=== PATIENT | male | born 1970 | race African-American/Black ===

== ENCOUNTER 2018-12-21 22:28 | Inpatient (IN) ==
[2018-12-21] MEDS ORDERED: ONDANSETRON 4 MG/2 ML VIAL IV STA (22:59)
[2018-12-21] MEDS ORDERED: THIAMINE INJ 100 MG, FOLIC ACID INJ 1 MG, MAGNESIUM SULF INJ 2 GM, MULTIVITAMIN INJ 10 ... IV ONE (22:59)
[2018-12-21] MEDS ORDERED: PANTOPRAZOLE 40 MG VIAL IV STA (22:59)
[2018-12-21 23:26] LABS: Basophils % 0.7 % (0.0-0.8); Eosinophils % 1.3 % (0.00-10.9); Hematocrit 42.8 VOL% (42.0-52.0); Immature Granulocytes % 0.3 %; Immature Granulocytes Absolute 0.01 #; Lymphocytes # 1.1 10*3/uL (1.4-4.0); Lymphocytes % 37.7 % (21.2-54.2); Mean Corpuscular Volume 90.1 FL (87-102); Mean Platelet Volume 11.5 FL (9.6-12.0); Monocytes % 16.5 % (1.7-12.7); Neutrophils % 43.5 % (38.7-73.9); Platelet Count 98 T/CUMM (130-400); Red Blood Count 4.75 MC/CUMM (3.8-5.5); Red Cell Distribution Width 12.4 % (9.3-17.3)
[2018-12-21 23:31] LABS: INR 0.9; PT Patient Result 10.2 SECS
[2018-12-21 23:48] LABS: Albumin 3.4 G/DL (3.4-5.0); Calcium 8.2 MG/DL (8.5-10.1); Osmolality,Calculated 273.5 MOS/KG (273-304); Total Protein 7.4 G/DL (6.4-8.3)
[2018-12-21 23:55] LABS: Barbiturates Screen,Urine Negative (Negative); Benzodiazepines Screen,Urine Negative (Negative); Cannabinoid Screen,Urine Negative (Negative); Opiate Screen,Urine Negative (Negative); Phencyclidine Screen,Urine Negative (Negative)
[2018-12-21 23:57] LABS: Eosinophils 1 % (0-10); Lymphocytes 48 % (20-55); Segmented Neutrophils 35 % (50-85)
[2018-12-21 23:58] LABS: Atypical Lymphocytes Few; Platelet Estimate Decreased; Reactive Lymphocytes Few; Total Cells Counted 100
[2018-12-22] MEDS ORDERED: ONDANSETRON 4 MG/2 ML VIAL IV PRN (02:10)
[2018-12-22] MEDS ORDERED: LORazepam 2 MG/1 ML VIAL IV PRN ×2 (02:17→02:18)
[2018-12-22] MEDS ORDERED: traZODone 50 MG TABLET PO PRN (02:18)
[2018-12-22] MEDS ORDERED: SENNA 8.6 MG TABLET PO PRN (02:18)
[2018-12-22] MEDS: SODIUM CHLORIDE 0.9% 1,000 ML IV SCH ×2 (03:21→16:55)
[2018-12-22] MEDS ORDERED: ACETAMINOPHEN 500 MG TABLET PO ONE ×2 (03:58→04:03)
[2018-12-22 05:02] LABS: Basophils % 0.3 % (0.0-0.8); Eosinophils % 1.4 % (0.00-10.9); Hematocrit 40.7 VOL% (42.0-52.0); Hemoglobin 14.4 GM/DL (14.0-18.0); Immature Granulocytes % 0.3 %; Immature Granulocytes Absolute 0.01 #; Lymphocytes # 1.2 10*3/uL (1.4-4.0); Lymphocytes % 40.6 % (21.2-54.2); Mean Corpuscular HGB Conc 35.4 GM/DL (32-36); Mean Corpuscular Volume 90.2 FL (87-102); Mean Platelet Volume 13.5 FL (9.6-12.0); Monocytes % 19.9 % (1.7-12.7); Neutrophils % 37.5 % (38.7-73.9); Red Blood Count 4.51 MC/CUMM (3.8-5.5); Red Cell Distribution Width 12.1 % (9.3-17.3); White Blood Count 2.9 T/CUMM (4-12)
[2018-12-22 05:11] LABS: Platelet Count 80 T/CUMM (130-400)
[2018-12-22 05:26] LABS: Osmolality,Calculated 275.4 MOS/KG (273-304)
[2018-12-22 05:30] LABS: Atypical Lymphocytes Few; Eosinophils 2 % (0-10); Hypochromasia 1+; Lymphocytes 46 % (20-55); Platelet Estimate Decreased; Segmented Neutrophils 41 % (50-85); Total Cells Counted 100
[2018-12-22] MEDS: MULTIVITAMIN (CENTRUM) TABLET PO SCH (08:32)
[2018-12-22] MEDS: FOLIC ACID 1 MG TABLET PO SCH (08:32)
[2018-12-22] MEDS: THIAMINE 100 MG TABLET PO SCH (08:32)
[2018-12-22 11:18] LABS: Hemoglobin 14.2 GM/DL (14.0-18.0)
[2018-12-22] MEDS ORDERED: BISACODYL 5 MG TABLET PO ONE (12:30)
[2018-12-22 17:25] LABS: Hematocrit 40.2 VOL% (42.0-52.0); Hemoglobin 13.9 GM/DL (14.0-18.0)
[2018-12-22] MEDS: PANTOPRAZOLE 40 MG VIAL IV SCH (17:29)
[2018-12-22] MEDS ORDERED: POLYETHYLENE GLYCOL POWDER 255 GM BOTTLE PO ONE (18:00)
[2018-12-22] MEDS ORDERED: MAGNESIUM CITRATE 300 ML BOTTLE PO ONE (21:00)
[2018-12-22 23:21] LABS: Hematocrit 39.9 VOL% (42.0-52.0)
[2018-12-23 04:13] LABS: Basophils % 0.6 % (0.0-0.8); Eosinophils % 1.2 % (0.00-10.9); Immature Granulocytes % 0.3 %; Immature Granulocytes Absolute 0.01 #; Lymphocytes # 0.9 10*3/uL (1.4-4.0); Lymphocytes % 28.5 % (21.2-54.2); Mean Corpuscular Volume 90.7 FL (87-102); Mean Platelet Volume 13.3 FL (9.6-12.0); Monocytes % 13.5 % (1.7-12.7); Neutrophils % 55.9 % (38.7-73.9); Red Blood Count 4.41 MC/CUMM (3.8-5.5); Red Cell Distribution Width 12.4 % (9.3-17.3); White Blood Count 3.3 T/CUMM (4-12)
[2018-12-23 04:17] LABS: Platelet Count 59 T/CUMM (130-400)
[2018-12-23 04:28] LABS: INR 0.9; PT Patient Result 10.3 SECS
[2018-12-23 04:38] LABS: Hypochromasia 1+; Ovalocytes Slight; Platelet Estimate Decreased
[2018-12-23] MEDS: SODIUM CHLORIDE 0.9% 1,000 ML IV SCH (05:49)
[2018-12-23] MEDS ORDERED: LACTATED RINGERS 500 ML IV ONE (07:00)
[2018-12-23] MEDS: PANTOPRAZOLE 40 MG VIAL IV SCH (08:12)
[2018-12-23] MEDS ORDERED: LIDOCAINE 2% 5 ML VIAL ONE (09:00)
[2018-12-23] MEDS ORDERED: PROPOFOL 200 MG/20 ML VIAL IV ONE (09:00)
[2018-12-23] MEDS: MULTIVITAMIN (CENTRUM) TABLET PO SCH (13:48)
[2018-12-23] MEDS: FOLIC ACID 1 MG TABLET PO SCH (13:48)
[2018-12-23] MEDS: THIAMINE 100 MG TABLET PO SCH (13:48)
[2018-12-23] MEDS: chlordiazePOXIDE 10 MG CAPSULE PO SCH ×2 (15:53→21:23)
[2018-12-24] MEDS: FOLIC ACID 1 MG TABLET PO SCH (08:35)
[2018-12-24] MEDS: MULTIVITAMIN (CENTRUM) TABLET PO SCH (08:35)
[2018-12-24] MEDS: PANTOPRAZOLE 40 MG VIAL IV SCH (08:35)
[2018-12-24] MEDS: chlordiazePOXIDE 10 MG CAPSULE PO SCH ×3 (08:35→20:40)
[2018-12-24] MEDS: THIAMINE 100 MG TABLET PO SCH (08:36)
[2018-12-24] MEDS: SODIUM CHLORIDE 0.9% 1,000 ML IV SCH ×2 (16:47)
[2018-12-25] MEDS: SODIUM CHLORIDE 0.9% 1,000 ML IV SCH ×2 (02:16→14:08)
[2018-12-25] MEDS: PANTOPRAZOLE 40 MG VIAL IV SCH (08:41)
[2018-12-25] MEDS: MULTIVITAMIN (CENTRUM) TABLET PO SCH (09:08)
[2018-12-25] MEDS: FOLIC ACID 1 MG TABLET PO SCH (09:08)
[2018-12-25] MEDS: chlordiazePOXIDE 10 MG CAPSULE PO SCH ×3 (09:08→21:36)
[2018-12-25] MEDS: THIAMINE 100 MG TABLET PO SCH (09:09)
[2018-12-25] MEDS: amLODIPine 5 MG TABLET PO SCH (16:16)
[2018-12-26] MEDS: SODIUM CHLORIDE 0.9% 1,000 ML IV SCH ×2 (02:59→18:10)
[2018-12-26] MEDS: chlordiazePOXIDE 10 MG CAPSULE PO SCH ×2 (08:54→17:19)
[2018-12-26] MEDS: THIAMINE 100 MG TABLET PO SCH (08:54)
[2018-12-26] MEDS: amLODIPine 5 MG TABLET PO SCH (08:54)
[2018-12-26] MEDS: PANTOPRAZOLE 40 MG VIAL IV SCH (08:54)
[2018-12-26] MEDS: FOLIC ACID 1 MG TABLET PO SCH (08:54)
[2018-12-26] MEDS: MULTIVITAMIN (CENTRUM) TABLET PO SCH (08:54)
[2018-12-26 09:20] LABS: Hematocrit 37.5 VOL% (42.0-52.0); Hemoglobin 13.3 GM/DL (14.0-18.0)
[2018-12-26 16:30] LABS: Basophils % 0.5 % (0.0-0.8); Eosinophils # 0.1 10*3/uL (0.0-0.87); Eosinophils % 1.6 % (0.00-10.9); Hematocrit 38.5 VOL% (42.0-52.0); Hemoglobin 13.4 GM/DL (14.0-18.0); Immature Granulocytes % 0.2 %; Immature Granulocytes Absolute 0.01 #; Lymphocytes # 0.6 10*3/uL (1.4-4.0); Lymphocytes % 13.9 % (21.2-54.2); Mean Corpuscular HGB Conc 34.8 GM/DL (32-36); Mean Corpuscular Volume 91.4 FL (87-102); Mean Platelet Volume 11.8 FL (9.6-12.0); Monocytes % 10.9 % (1.7-12.7); Neutrophils % 72.9 % (38.7-73.9); Platelet Count 87 T/CUMM (130-400); Red Blood Count 4.21 MC/CUMM (3.8-5.5); Red Cell Distribution Width 12.8 % (9.3-17.3); White Blood Count 4.3 T/CUMM (4-12)
[2018-12-26] MEDS: ACETAMINOPHEN 325 MG TABLET PO PRN (16:45)
[2018-12-26] MEDS: ceFAZolin 1,000 MG in SYRINGE 1 EACH IV SCH (17:05)
[2018-12-26] MEDS ORDERED: SODIUM CHLORIDE 0.9% 1,000 ML IV ONE (17:15)
[2018-12-26 17:43] LABS: Apearance,Urine CLEAR (Clear); Bilirubin,Urine Negative (Negative); Blood, Urine Negative (Negative); Glucose,Urine (UA) Negative (Negative); Ketones,Urine Negative (Negative); Nitrite,Urine Negative (Negative); Protein,Urine Negative; RBC,Urine <1 /HPF (0-4); Urine Color Yellow (Yellow); Urine Specific Gravity 1.009 (1.001-1.035); WBC,Urine <1 /HPF (0-6)
[2018-12-26 18:04] LABS: Basophils % 0.4 % (0.0-0.8); Eosinophils % 0.7 % (0.00-10.9); Hematocrit 38.9 VOL% (42.0-52.0); Hemoglobin 13.5 GM/DL (14.0-18.0); Immature Granulocytes % 0.5 %; Immature Granulocytes Absolute 0.03 #; Lymphocytes # 0.5 10*3/uL (1.4-4.0); Lymphocytes % 8.4 % (21.2-54.2); Mean Corpuscular HGB Conc 34.7 GM/DL (32-36); Mean Corpuscular Volume 90.5 FL (87-102); Mean Platelet Volume 11.3 FL (9.6-12.0); Monocytes % 8.5 % (1.7-12.7); Neutrophils % 81.5 % (38.7-73.9); Platelet Count 96 T/CUMM (130-400); Red Cell Distribution Width 12.4 % (9.3-17.3); White Blood Count 5.6 T/CUMM (4-12)
[2018-12-26 18:29] LABS: Calcium 8.5 MG/DL (8.5-10.1); Osmolality,Calculated 266.2 MOS/KG (273-304)
[2018-12-26] MEDS ORDERED: MAGNESIUM SULF RIDER 4 GM in PREMIX 1 EACH IV PRN (19:36)
[2018-12-26] MEDS ORDERED: MAGNESIUM SULF RIDER 2 GM in PREMIX 1 EACH IV PRN (19:36)
[2018-12-26] MEDS: POTASSIUM CHLORIDE 20 MEQ TABLET PO PRN ×2 (21:09→23:13)
[2018-12-27] MEDS: ceFAZolin 1,000 MG in SYRINGE 1 EACH IV SCH ×3 (01:05→17:29)
[2018-12-27] MEDS: POTASSIUM CHLORIDE 20 MEQ TABLET PO PRN ×2 (01:06→03:03)
[2018-12-27] MEDS: SODIUM CHLORIDE 0.9% 1,000 ML IV SCH ×5 (03:08→21:13)
[2018-12-27 05:32] LABS: Basophils % 0.5 % (0.0-0.8); Eosinophils # 0.1 10*3/uL (0.0-0.87); Eosinophils % 0.8 % (0.00-10.9); Hematocrit 38.8 VOL% (42.0-52.0); Hemoglobin 13.5 GM/DL (14.0-18.0); Immature Granulocytes % 0.6 %; Immature Granulocytes Absolute 0.04 #; Lymphocytes # 0.8 10*3/uL (1.4-4.0); Lymphocytes % 11.6 % (21.2-54.2); Mean Corpuscular HGB Conc 34.8 GM/DL (32-36); Mean Corpuscular Volume 91.5 FL (87-102); Mean Platelet Volume 12.4 FL (9.6-12.0); Monocytes % 19.9 % (1.7-12.7); Neutrophils % 66.6 % (38.7-73.9); Platelet Count 54 T/CUMM (130-400); Red Blood Count 4.24 MC/CUMM (3.8-5.5); Red Cell Distribution Width 12.6 % (9.3-17.3); White Blood Count 6.5 T/CUMM (4-12)
[2018-12-27 05:55] LABS: Band Neutrophils 1 % (0-10); Lymphocytes 8 % (20-55); Segmented Neutrophils 78 % (50-85); Total Cells Counted 100
[2018-12-27 05:56] LABS: Hypochromasia 1+; Microcytosis Slight; Target Cells Slight
[2018-12-27 05:57] LABS: Platelet Estimate Decreased
[2018-12-27 06:03] LABS: Calcium 8.5 MG/DL (8.5-10.1); Osmolality,Calculated 272.7 MOS/KG (273-304)
[2018-12-27] MEDS: PANTOPRAZOLE 40 MG VIAL IV SCH (08:12)
[2018-12-27] MEDS: FLUTICASONE 50 MCG NASAL SPRAY 16 GM BOTTLE BOTH NARES SCH ×2 (10:04→21:03)
[2018-12-27] MEDS: amLODIPine 5 MG TABLET PO SCH (10:05)
[2018-12-27] MEDS: MULTIVITAMIN (CENTRUM) TABLET PO SCH (10:05)
[2018-12-27] MEDS: FOLIC ACID 1 MG TABLET PO SCH (10:05)
[2018-12-27] MEDS: THIAMINE 100 MG TABLET PO SCH (10:10)
[2018-12-27] MEDS: ACETAMINOPHEN 325 MG TABLET PO PRN (17:35)
[2018-12-28] MEDS: ceFAZolin 1,000 MG in SYRINGE 1 EACH IV SCH ×2 (01:18→08:50)
[2018-12-28] MEDS: SODIUM CHLORIDE 0.9% 1,000 ML IV SCH (05:25)
[2018-12-28 07:33] VITALS: BP 130/82
[2018-12-28] MEDS: FOLIC ACID 1 MG TABLET PO SCH (08:41)
[2018-12-28] MEDS: MULTIVITAMIN (CENTRUM) TABLET PO SCH (08:41)
[2018-12-28] MEDS: THIAMINE 100 MG TABLET PO SCH (08:41)
[2018-12-28] MEDS: amLODIPine 5 MG TABLET PO SCH (08:41)
[2018-12-28] MEDS: FLUTICASONE 50 MCG NASAL SPRAY 16 GM BOTTLE BOTH NARES SCH (08:44)
[2018-12-28] MEDS: PANTOPRAZOLE 40 MG VIAL IV SCH (08:45)
== END 2018-12-28 09:45 | disposition home or self-care (01) | DRG 378 ==
LOC: EDBD → EDUNIT# → N.2E 22:28 → N.ED 22:28 → N.2E 12-22 02:49
PROVIDERS: ADMIT Internal Medicine; ATTEND Internal Medicine

== ENCOUNTER 2020-12-09 15:52 | Inpatient (IN) ==
[2020-12-09] MEDS ORDERED: THIAMINE 200 MG/2 ML VIAL IV STA (16:11)
[2020-12-09] MEDS ORDERED: SODIUM CHLORIDE 0.9% 1,000 ML IV STA (16:11)
[2020-12-09 16:32] LABS: Basophils % 0.9 % (0.0-0.8); Eosinophils % 0.3 % (0.00-10.9); Hematocrit 26.3 VOL% (42.0-52.0); Hemoglobin 9.2 GM/DL (14.0-18.0); Immature Granulocytes % 3.1 %; Lymphocytes # 1.3 10*3/uL (1.4-4.0); Lymphocytes % 39.9 % (21.2-54.2); Mean Corpuscular Volume 100.8 FL (87-102); Monocytes % 11.8 % (1.7-12.7); NRBC # 0.07 10*3/uL; Red Blood Count 2.61 MC/CUMM (3.8-5.5); Red Cell Distribution Width 17.6 % (9.3-17.3); White Blood Count 3.2 T/CUMM (4-12)
[2020-12-09 16:36] LABS: Platelet Count 19 T/CUMM (130-400)
[2020-12-09 16:43] LABS: INR 1.1; PT Patient Result 11.4 SECS (9.8-11.9)
[2020-12-09] MEDS ORDERED: PANTOPRAZOLE 40 MG VIAL IV STA (16:43)
[2020-12-09 16:58] LABS: Albumin 2.7 G/DL (3.4-5.0); Calcium 8.4 MG/DL (8.5-10.1); Potassium 2.9 MMOL/L (3.5-5.1); Total Protein 6.7 G/DL (5.0-7.5)
[2020-12-09 17:08] LABS: Barbiturates Screen,Urine Negative (Negative); Benzodiazepines Screen,Urine Negative (Negative); Cannabinoid Screen,Urine Negative (Negative); Opiate Screen,Urine Negative (Negative); Phencyclidine Screen,Urine Negative (Negative)
[2020-12-09] MEDS ORDERED: POTASSIUM CHLORIDE 20 MEQ TABLET PO STA (17:10)
[2020-12-09 17:19] LABS: Platelet Estimate Decreased
[2020-12-09 17:20] LABS: Polychromasia Few
[2020-12-09 17:23] LABS: Anisocytosis Slight
[2020-12-09] MEDS ORDERED: ONDANSETRON 4 MG/2 ML VIAL IV PRN (19:16)
[2020-12-09] MEDS ORDERED: GLUCAGON 1 MG VIAL IM PRN (19:16)
[2020-12-09] MEDS ORDERED: hydrALAZINE 20 MG/1 ML VIAL IV PRN (19:16)
[2020-12-09] MEDS ORDERED: MORPHINE 4 MG/1 ML VIAL IV PRN (19:16)
[2020-12-09] MEDS ORDERED: DEXTROSE 50% 25 GM/50 ML VIAL IV PRN (19:16)
[2020-12-09] MEDS ORDERED: SODIUM CHLORIDE 0.9% 1,000 ML IV PRN (19:28)
[2020-12-09 20:08] LABS: % Iron Saturation 55.4 % (18-50); Ferritin 6282.5 ng/ml (26-388)
[2020-12-09 20:25] LABS: Thyroid Stimulating Hormone 0.825 uIU/ml (0.358-3.74)
[2020-12-09] MEDS: PANTOPRAZOLE 40 MG VIAL IV SCH (21:08)
[2020-12-09] MEDS: DEXTROSE 5% NACL 0.9% 1,000 ML IV SCH (21:11)
[2020-12-09] MEDS ORDERED: MAGNESIUM SULF RIDER 2 GM in PREMIX 1 EACH IV PRN (22:25)
[2020-12-09] MEDS ORDERED: MAGNESIUM SULF RIDER 4 GM in PREMIX 1 EACH IV PRN (22:25)
[2020-12-10 05:42] LABS: Basophils % 1.3 % (0.0-0.8); Hematocrit 22.4 VOL% (42.0-52.0); Hemoglobin 8.2 GM/DL (14.0-18.0); Immature Granulocytes % 4.8 %; Immature Granulocytes Absolute 0.11 #; Lymphocytes # 0.8 10*3/uL (1.4-4.0); Lymphocytes % 36.2 % (21.2-54.2); Mean Corpuscular HGB Conc 36.6 GM/DL (32-36); Mean Corpuscular Volume 99.1 FL (87-102); Monocytes % 8.7 % (1.7-12.7); NRBC # 0.05 10*3/uL; Red Blood Count 2.26 MC/CUMM (3.8-5.5); Red Cell Distribution Width 17.3 % (9.3-17.3); White Blood Count 2.3 T/CUMM (4-12)
[2020-12-10 05:50] LABS: Platelet Count 21 T/CUMM (130-400)
[2020-12-10 05:59] LABS: Hypochromasia 1+; Microcytosis 1+
[2020-12-10 06:02] LABS: Albumin 2.4 G/DL (3.4-5.0); Bilirubin,Total 4.9 MG/DL (0.2-1.0); Calcium 7.9 MG/DL (8.5-10.1); Osmolality,Calculated 281.8 MOS/KG (273-304); Potassium 3.4 MMOL/L (3.5-5.1); Total Protein 5.9 G/DL (5.0-7.5)
[2020-12-10 06:47] LABS: Bilirubin,Urine Negative (Negative); Blood, Urine Negative (Negative); Glucose,Urine (UA) Negative (Negative); Ketones,Urine Negative (Negative); Nitrite,Urine Negative (Negative); Protein,Urine Negative; RBC,Urine 3 /HPF (0-4); Squamous Epithelial Cell,Urine Occasional /HPF (0-10); Urine Appearance CLEAR (Clear); Urine Color Amber (Yellow); Urine Specific Gravity 1.021 (1.001-1.035); WBC,Urine 5 /HPF (0-6)
[2020-12-10] MEDS ORDERED: methylPREDNISolone SOD SUC 40 MG/1 ML VIAL IV ONE (07:57)
[2020-12-10] MEDS ORDERED: diphenhydrAMINE CAP 50 MG CAPSULE PO ONE (07:57)
[2020-12-10] MEDS: PANTOPRAZOLE 40 MG VIAL IV SCH ×2 (08:44→22:25)
[2020-12-10] MEDS: FOLIC ACID 1 MG TABLET PO SCH (08:45)
[2020-12-10] MEDS: MULTIVITAMIN (CENTRUM) TABLET PO SCH (08:45)
[2020-12-10] MEDS ORDERED: THIAMINE 200 MG/2 ML VIAL IM SCH (09:00)
[2020-12-10] MEDS: chlordiazePOXIDE 25 MG CAPSULE PO PRN ×2 (15:21→19:25)
[2020-12-10] MEDS: LORazepam 2 MG/1 ML VIAL IV PRN (19:25)
[2020-12-10] MEDS: chlordiazePOXIDE 25 MG CAPSULE PO SCH (22:24)
[2020-12-10] MEDS: DEXTROSE 5% NACL 0.9% 1,000 ML IV SCH (22:24)
[2020-12-11 06:33] LABS: Basophils % 0.7 % (0.0-0.8); Hematocrit 24.7 VOL% (42.0-52.0); Hemoglobin 8.9 GM/DL (14.0-18.0); Immature Granulocytes % 4.5 %; Immature Granulocytes Absolute 0.12 #; Lymphocytes # 0.8 10*3/uL (1.4-4.0); Lymphocytes % 30.7 % (21.2-54.2); Monocytes % 9.4 % (1.7-12.7); NRBC # 0.07 10*3/uL; Neutrophils % 54.7 % (38.7-73.9); Platelet Count 41 T/CUMM (130-400); Red Blood Count 2.47 MC/CUMM (3.8-5.5); Red Cell Distribution Width 17.1 % (9.3-17.3); White Blood Count 2.7 T/CUMM (4-12)
[2020-12-11 06:51] LABS: Albumin 2.7 G/DL (3.4-5.0); Bilirubin,Direct 3.25 MG/DL (0.0-0.20); Bilirubin,Indirect 1.7 MG/DL (0.0-1.0); Bilirubin,Total 4.9 MG/DL (0.2-1.0); Total Protein 6.5 G/DL (5.0-7.5)
[2020-12-11 06:53] LABS: Albumin 2.7 G/DL (3.4-5.0); Bilirubin,Total 5.6 MG/DL (0.2-1.0); Calcium 8.4 MG/DL (8.5-10.1); Osmolality,Calculated 272.7 MOS/KG (273-304); Potassium 3.3 MMOL/L (3.5-5.1); Total Protein 6.5 G/DL (5.0-7.5)
[2020-12-11 07:03] LABS: Hypochromasia 1+
[2020-12-11 07:04] LABS: Microcytosis 1+; Target Cells 1+; Tear Drop Cells Slight
[2020-12-11 07:05] LABS: Platelet Estimate Decreased
[2020-12-11] MEDS ORDERED: POTASSIUM CHLORIDE 20 MEQ TABLET PO ONE (08:47)
[2020-12-11] MEDS: chlordiazePOXIDE 25 MG CAPSULE PO SCH ×3 (09:27→21:43)
[2020-12-11] MEDS: FOLIC ACID 1 MG TABLET PO SCH (09:27)
[2020-12-11] MEDS: THIAMINE 100 MG TABLET PO SCH (09:27)
[2020-12-11] MEDS: MAGNESIUM OXIDE 400 MG TABLET PO SCH (09:28)
[2020-12-11] MEDS: MULTIVITAMIN (CENTRUM) TABLET PO SCH (09:29)
[2020-12-11] MEDS: PANTOPRAZOLE 40 MG VIAL IV SCH ×2 (09:32→21:40)
[2020-12-11] MEDS: DEXTROSE 5% NACL 0.9% 1,000 ML IV SCH (18:13)
[2020-12-12] MEDS: LORazepam 2 MG/1 ML VIAL IV PRN ×2 (03:35→15:20)
[2020-12-12 06:08] LABS: Basophils % 0.6 % (0.0-0.8); Eosinophils % 0.6 % (0.00-10.9); Hematocrit 26.8 VOL% (42.0-52.0); Hemoglobin 9.4 GM/DL (14.0-18.0); Immature Granulocytes % 4.2 %; Immature Granulocytes Absolute 0.14 #; Lymphocytes % 30.1 % (21.2-54.2); Mean Corpuscular HGB Conc 35.1 GM/DL (32-36); Mean Corpuscular Volume 104.3 FL (87-102); Mean Platelet Volume 13.9 FL (9.6-12.0); Monocytes % 8.4 % (1.7-12.7); NRBC # 0.09 10*3/uL; Neutrophils % 56.1 % (38.7-73.9); Platelet Count 53 T/CUMM (130-400); Red Blood Count 2.57 MC/CUMM (3.8-5.5); Red Cell Distribution Width 17.2 % (9.3-17.3); White Blood Count 3.3 T/CUMM (4-12)
[2020-12-12 06:35] LABS: Albumin 2.8 G/DL (3.4-5.0); Bilirubin,Total 4.8 MG/DL (0.2-1.0); Calcium 8.8 MG/DL (8.5-10.1); Osmolality,Calculated 269.8 MOS/KG (273-304); Potassium 3.4 MMOL/L (3.5-5.1); Total Protein 6.7 G/DL (5.0-7.5)
[2020-12-12 06:36] LABS: Albumin 2.9 G/DL (3.4-5.0); Bilirubin,Direct 3.56 MG/DL (0.0-0.20); Bilirubin,Indirect 1.7 MG/DL (0.0-1.0); Bilirubin,Total 5.3 MG/DL (0.2-1.0); Hypochromasia 1+; Microcytosis 1+; Platelet Estimate Decreased; Total Protein 6.7 G/DL (5.0-7.5)
[2020-12-12] MEDS ORDERED: POTASSIUM CHLORIDE 20 MEQ TABLET PO ONE (08:40)
[2020-12-12] MEDS: THIAMINE 100 MG TABLET PO SCH (10:10)
[2020-12-12] MEDS: FOLIC ACID 1 MG TABLET PO SCH (10:10)
[2020-12-12] MEDS: MAGNESIUM OXIDE 400 MG TABLET PO SCH (10:10)
[2020-12-12] MEDS: MULTIVITAMIN (CENTRUM) TABLET PO SCH (10:11)
[2020-12-12] MEDS: chlordiazePOXIDE 25 MG CAPSULE PO SCH ×3 (10:11→20:21)
[2020-12-12] MEDS: PANTOPRAZOLE 40 MG VIAL IV SCH ×2 (10:13→22:04)
[2020-12-12] MEDS ORDERED: HALOPERIDOL 5 MG/ML AMP IM PRN (18:22)
[2020-12-13 06:16] LABS: Basophils % 0.6 % (0.0-0.8); Eosinophils % 0.3 % (0.00-10.9); Hematocrit 24.7 VOL% (42.0-52.0); Hemoglobin 8.7 GM/DL (14.0-18.0); Lymphocytes # 0.8 10*3/uL (1.4-4.0); Lymphocytes % 23.3 % (21.2-54.2); Mean Corpuscular HGB Conc 35.2 GM/DL (32-36); Mean Corpuscular Volume 101.6 FL (87-102); Monocytes % 9.9 % (1.7-12.7); NRBC # 0.06 10*3/uL; Neutrophils % 62.9 % (38.7-73.9); Platelet Count 46 T/CUMM (130-400); Red Blood Count 2.43 MC/CUMM (3.8-5.5); Red Cell Distribution Width 17.1 % (9.3-17.3); White Blood Count 3.4 T/CUMM (4-12)
[2020-12-13 06:33] LABS: Albumin 2.7 G/DL (3.4-5.0); Bilirubin,Direct 3.39 MG/DL (0.0-0.20); Bilirubin,Indirect 0.9 MG/DL (0.0-1.0); Bilirubin,Total 4.3 MG/DL (0.2-1.0)
[2020-12-13 06:35] LABS: Albumin 2.7 G/DL (3.4-5.0); Bilirubin,Total 4.4 MG/DL (0.2-1.0); Calcium 9.3 MG/DL (8.5-10.1); Osmolality,Calculated 273.5 MOS/KG (273-304); Potassium 3.5 MMOL/L (3.5-5.1); Total Protein 6.4 G/DL (5.0-7.5)
[2020-12-13 06:40] LABS: Hypochromasia 1+; Microcytosis 1+; Platelet Estimate Decreased
[2020-12-13] MEDS ORDERED: LACTATED RINGERS 1,000 ML IV SCH (08:00)
[2020-12-13] MEDS: PANTOPRAZOLE 40 MG VIAL IV SCH (08:40)
[2020-12-13] MEDS: chlordiazePOXIDE 25 MG CAPSULE PO SCH ×2 (08:52→16:54)
[2020-12-13] MEDS: MULTIVITAMIN (CENTRUM) TABLET PO SCH (08:52)
[2020-12-13] MEDS: FOLIC ACID 1 MG TABLET PO SCH (08:52)
[2020-12-13] MEDS: MAGNESIUM OXIDE 400 MG TABLET PO SCH (08:53)
[2020-12-13] MEDS: THIAMINE 100 MG TABLET PO SCH (08:53)
[2020-12-13] MEDS ORDERED: LIDOCAINE 2% 5 ML VIAL ONE (11:37)
[2020-12-13] MEDS ORDERED: propofoL 200 MG/20 ML VIAL IV ONE (11:37)
[2020-12-13 15:42] VITALS: BP 138/100
[2020-12-13] MEDS: DEXTROSE 5% NACL 0.9% 1,000 ML IV SCH (16:54)
== END 2020-12-13 17:20 | disposition home or self-care (01) | DRG 896 ==
LOC: EDUNIT# → EDBD → N.ED 15:52 → N.EDINP 19:13 → N.4E 21:53
PROVIDERS: ADMIT Hospitalist; ATTEND Hospitalist

== ENCOUNTER 2021-09-25 10:40 | Inpatient (IN) ==
[2021-09-25] MEDS ORDERED: THIAMINE INJ 100 MG, FOLIC ACID INJ 1 MG, MAGNESIUM SULF INJ 2 GM, MULTIVITAMIN INJ 10 ... IV STA (11:08)
[2021-09-25 11:17] LABS: Basophils % 0.4 % (0.0-0.8); Hemoglobin 12.1 GM/DL (14.0-18.0); Immature Granulocytes % 4.9 %; Immature Granulocytes Absolute 0.13 #; Lymphocytes # 0.5 10*3/uL (1.4-4.0); Lymphocytes % 19.5 % (21.2-54.2); Mean Corpuscular HGB Conc 35.6 GM/DL (32-36); Mean Corpuscular Volume 97.1 FL (87-102); Monocytes % 10.9 % (1.7-12.7); NRBC # 0.03 10*3/uL; Neutrophils % 64.3 % (38.7-73.9); Red Cell Distribution Width 15.3 % (9.3-17.3); White Blood Count 2.7 T/CUMM (4-12)
[2021-09-25 11:20] LABS: Platelet Count 12 T/CUMM (130-400)
[2021-09-25 11:28] LABS: Alanine Aminotransferase 80 U/L (16-61); Albumin 3.4 G/DL (3.4-5.0); Alkaline Phosphatase 354 U/L (45-117); Aspartate Amino Transferase 181 U/L (0-37); Blood Urea Nitrogen 5 MG/DL (7-18); Calcium 9.1 MG/DL (8.5-10.1); Carbon Dioxide 31 MMOL/L (21-32); Estimated Glom Filtration Rate 118 ML/MIN; Glucose 119 MG/DL (74-106); Osmolality,Calculated 272.7 MOS/KG (273-304); Potassium 2.7 MMOL/L (3.5-5.1); Sodium 138 MMOL/L (136-145); Total Protein 7.9 G/DL (6.4-8.2)
[2021-09-25 11:35] LABS: Anisocytosis 1+; Macrocytosis 1+; Platelet Estimate Decreased
[2021-09-25] MEDS ORDERED: POTASSIUM CHLORIDE 20 MEQ TABLET PO STA (11:36)
[2021-09-25] MEDS ORDERED: ONDANSETRON 4 MG/2 ML VIAL IV PRN (12:23)
[2021-09-25] MEDS ORDERED: DOCUSATE SODIUM 100 MG CAPSULE PO PRN (12:23)
[2021-09-25] MEDS ORDERED: ALBUTEROL 2.5 MG/3 ML NEB RESP TX PRN (12:23)
[2021-09-25] MEDS ORDERED: ALUMINUM/MAGNES/SIMETH MAX STR 30 ML UDCUP PO PRN (12:23)
[2021-09-25] MEDS ORDERED: MAGNESIUM SULF RIDER 4 GM/100 ML PREMIX IV PRN (12:27)
[2021-09-25] MEDS ORDERED: MAGNESIUM SULF RIDER 2 GM/50 ML PREMIX IV PRN (12:27)
[2021-09-25] MEDS ORDERED: SODIUM CHLORIDE 0.9% 1,000 ML IV PRN (12:29)
[2021-09-25] MEDS ORDERED: PANTOPRAZOLE 40 MG VIAL IV SCH (12:30)
[2021-09-25] MEDS ORDERED: POTASSIUM CHLORIDE INJ 20 MEQ in DEXTROSE 5% NACL 0.9% 1,000 ML IV SCH (12:30)
[2021-09-25 12:40] LABS: Barbiturates Screen,Urine Negative (Negative); Benzodiazepines Screen,Urine Negative (Negative); Cannabinoid Screen,Urine Negative (Negative); Opiate Screen,Urine Negative (Negative); Phencyclidine Screen,Urine Negative (Negative)
[2021-09-25] MEDS: DIAZEPAM 5 MG TABLET PO SCH ×2 (12:53→18:13)
[2021-09-25 13:22] LABS: INR 1.1; PT Patient Result 12.1 SECS (10.5-12.0)
[2021-09-25 13:26] LABS: Bilirubin,Urine Negative (Negative); Blood, Urine Negative (Negative); Glucose,Urine (UA) Negative (Negative); Ketones,Urine Negative (Negative); Mucus,Urine Occasional /LPF (Occasional); Nitrite,Urine Negative (Negative); Protein,Urine 30 MG/DL; RBC,Urine 2 /HPF (0-4); Squamous Epithelial Cell,Urine Occasional /HPF (0-10); Urine Appearance CLEAR (Clear); Urine Color Yellow (Yellow); Urine Specific Gravity 1.011 (1.001-1.035)
[2021-09-25] MEDS ORDERED: DEXMEDETOMIDINE 200 MCG in SODIUM CHLORIDE 0.9% 48 ML IV PRN (13:36)
[2021-09-25 13:37] LABS: % Iron Saturation 93.7 % (18-50)
[2021-09-25 13:38] LABS: Folate 5.7 NG/ML (5.38-24.0)
[2021-09-25] MEDS: amLODIPine 5 MG TABLET PO SCH (13:53)
[2021-09-25] MEDS ORDERED: DEXT 5% NACL 0.9% KCL 20 MEQ 20 MEQ/1,000 ML BAG IV SCH (14:00)
[2021-09-25 14:28] LABS: Hepatitis B Core IgM Quant 0.15 Index; Hepatitis B Surface Ag Quant < 0.10 Index; Hepatitis B Surface Ag Result Non-Reactive (NonReactive); Hepatitis C Virus Ab Result Non-Reactive (NonReactive)
[2021-09-25] MEDS: FAMOTIDINE 20 MG/2 ML VIAL IV SCH (14:29)
[2021-09-25 17:53] LABS: Basophils % 0.5 % (0.0-0.8); Hematocrit 33.5 VOL% (42.0-52.0); Hemoglobin 11.8 GM/DL (14.0-18.0); Immature Granulocytes % 3.7 %; Immature Granulocytes Absolute 0.16 #; Lymphocytes # 0.7 10*3/uL (1.4-4.0); Lymphocytes % 16.6 % (21.2-54.2); Mean Corpuscular HGB Conc 35.2 GM/DL (32-36); Mean Corpuscular Volume 97.1 FL (87-102); Monocytes % 9.7 % (1.7-12.7); NRBC # 0.03 10*3/uL; Neutrophils % 69.5 % (38.7-73.9); Red Blood Count 3.45 MC/CUMM (3.8-5.5); Red Cell Distribution Width 15.6 % (9.3-17.3); White Blood Count 4.3 T/CUMM (4-12)
[2021-09-25] MEDS ORDERED: PNEUMOCOCCAL VACCINE (23 VALENT) 0.5 ML VIAL IM ONE (17:55)
[2021-09-25 18:05] LABS: Platelet Count 18 T/CUMM (130-400)
[2021-09-25 18:07] LABS: Calcium 9.1 MG/DL (8.5-10.1); Osmolality,Calculated 268.1 MOS/KG (273-304); Potassium 3.1 MMOL/L (3.5-5.1)
[2021-09-25] MEDS: DEXT 5% NACL 0.45% KCL 20 MEQ 20 MEQ/1,000 ML BAG IV SCH (18:13)
[2021-09-25] MEDS ORDERED: POTASSIUM CHLORIDE 20 MEQ TABLET PO ONE (18:40)
[2021-09-25] MEDS ORDERED: MAGNESIUM SULF RIDER 4 GM/100 ML PREMIX IV ONE (18:43)
[2021-09-25] MEDS: hydrALAZINE 20 MG/1 ML VIAL IV PRN (19:29)
[2021-09-25] MEDS: ACETAMINOPHEN 325 MG TABLET PO PRN (20:33)
[2021-09-26] MEDS: DIAZEPAM 5 MG TABLET PO SCH ×4 (01:33→17:51)
[2021-09-26] MEDS: FAMOTIDINE 20 MG/2 ML VIAL IV SCH ×2 (02:44→16:00)
[2021-09-26] MEDS: DEXT 5% NACL 0.45% KCL 20 MEQ 20 MEQ/1,000 ML BAG IV SCH ×2 (03:58→13:43)
[2021-09-26 06:10] LABS: Basophils % 0.3 % (0.0-0.8); Eosinophils % 0.3 % (0.00-10.9); Hematocrit 32.6 VOL% (42.0-52.0); Hemoglobin 11.5 GM/DL (14.0-18.0); Immature Granulocytes % 1.6 %; Immature Granulocytes Absolute 0.05 #; Lymphocytes # 0.7 10*3/uL (1.4-4.0); Lymphocytes % 21.8 % (21.2-54.2); Mean Corpuscular HGB Conc 35.3 GM/DL (32-36); Mean Corpuscular Volume 97.6 FL (87-102); Monocytes % 14.2 % (1.7-12.7); NRBC # 0.02 10*3/uL; Neutrophils % 61.8 % (38.7-73.9); Red Blood Count 3.34 MC/CUMM (3.8-5.5); Red Cell Distribution Width 15.7 % (9.3-17.3); White Blood Count 3.2 T/CUMM (4-12)
[2021-09-26 06:13] LABS: Platelet Count 15 T/CUMM (130-400)
[2021-09-26 06:36] LABS: Platelet Estimate Decreased
[2021-09-26 06:49] LABS: Albumin 2.9 G/DL (3.4-5.0); Calcium 8.6 MG/DL (8.5-10.1); Osmolality,Calculated 274.5 MOS/KG (273-304); Risk Ratio 1.51; VLDL Cholesterol 11.8 MG/DL
[2021-09-26] MEDS ORDERED: POTASSIUM CHLORIDE RIDER 10 MEQ/100 ML PREMIX IV PRN (06:59)
[2021-09-26] MEDS: FOLIC ACID 1 MG TABLET PO SCH (08:13)
[2021-09-26] MEDS: POTASSIUM CHLORIDE 20 MEQ TABLET PO PRN (08:13)
[2021-09-26] MEDS: THIAMINE 100 MG TABLET PO SCH (08:13)
[2021-09-26] MEDS: amLODIPine 5 MG TABLET PO SCH (08:13)
[2021-09-26] MEDS: MULTIVITAMIN (BEROCCA) TABLET PO SCH (08:13)
[2021-09-27] MEDS: DIAZEPAM 5 MG TABLET PO SCH ×4 (00:35→17:49)
[2021-09-27] MEDS: DEXT 5% NACL 0.45% KCL 20 MEQ 20 MEQ/1,000 ML BAG IV SCH ×4 (02:15→23:33)
[2021-09-27] MEDS: FAMOTIDINE 20 MG/2 ML VIAL IV SCH ×2 (02:34→13:23)
[2021-09-27] MEDS ORDERED: LORazepam 2 MG/1 ML VIAL IV ONE ×2 (04:06→13:32)
[2021-09-27 04:49] LABS: Basophils % 0.3 % (0.0-0.8); Eosinophils % 0.7 % (0.00-10.9); Hematocrit 32.1 VOL% (42.0-52.0); Hemoglobin 11.1 GM/DL (14.0-18.0); Immature Granulocytes % 1.7 %; Immature Granulocytes Absolute 0.05 #; Lymphocytes # 0.8 10*3/uL (1.4-4.0); Mean Corpuscular HGB Conc 34.6 GM/DL (32-36); Mean Corpuscular Volume 99.7 FL (87-102); Monocytes % 12.7 % (1.7-12.7); NRBC # 0.02 10*3/uL; Neutrophils % 59.6 % (38.7-73.9); Red Blood Count 3.22 MC/CUMM (3.8-5.5); Red Cell Distribution Width 15.2 % (9.3-17.3)
[2021-09-27 04:54] LABS: Platelet Count 15 T/CUMM (130-400)
[2021-09-27 05:19] LABS: Albumin 2.8 G/DL (3.4-5.0); Bilirubin,Total 2.8 MG/DL (0.20-1.00); Calcium 8.8 MG/DL (8.5-10.1); Osmolality,Calculated 270.8 MOS/KG (273-304); Potassium 3.9 MMOL/L (3.5-5.1); Total Protein 6.8 G/DL (6.4-8.2)
[2021-09-27 05:32] LABS: Anisocytosis Slight; Band Neutrophils 6 % (0-10); Eosinophils 1 % (0-10); Lymphocytes 25 % (20-55); Macrocytosis Slight; Platelet Estimate Decreased; Segmented Neutrophils 59 % (50-85); Target Cells Few; Tear Drop Cells Few; Total Cells Counted 100
[2021-09-27] MEDS: MULTIVITAMIN (BEROCCA) TABLET PO SCH (08:50)
[2021-09-27] MEDS: FOLIC ACID 1 MG TABLET PO SCH (08:50)
[2021-09-27] MEDS: predniSONE 10 MG TABLET PO SCH (08:50)
[2021-09-27] MEDS: THIAMINE 100 MG TABLET PO SCH (08:50)
[2021-09-27] MEDS: amLODIPine 5 MG TABLET PO SCH (08:50)
[2021-09-27] MEDS ORDERED: IMMUNE GLOBULIN 10% 20 GM, IMMUNE GLOBULIN 10% 10 GM in PREMIX 1 EACH IV ONE (09:58)
[2021-09-27] MEDS: NICOTINE 21 MG/24 HR PATCH TRANSDERM SCH (13:14)
[2021-09-27] MEDS ORDERED: DEXMEDETOMIDINE 200 MCG in SODIUM CHLORIDE 0.9% 48 ML IV PRN (13:31)
[2021-09-27] MEDS ORDERED: cloNIDine 0.2 MG/24 HR PATCH TRANSDERM SCH (14:00)
[2021-09-27] MEDS: LORazepam 2 MG/1 ML VIAL IV SCH ×2 (14:31→19:29)
[2021-09-27] MEDS: DEXMEDETOMIDINE 400 MCG in SODIUM CHLORIDE 0.9% 96 ML IV PRN (17:47)
[2021-09-27] MEDS: THIAMINE 200 MG/2 ML VIAL IV SCH (21:11)
[2021-09-28] MEDS: DIAZEPAM 5 MG TABLET PO SCH ×5 (00:45→21:44)
[2021-09-28] MEDS: LORazepam 2 MG/1 ML VIAL IV SCH ×2 (02:13→08:28)
[2021-09-28] MEDS: FAMOTIDINE 20 MG/2 ML VIAL IV SCH ×2 (02:13→14:49)
[2021-09-28] MEDS: DEXMEDETOMIDINE 400 MCG in SODIUM CHLORIDE 0.9% 96 ML IV PRN ×2 (02:21→11:45)
[2021-09-28 05:04] LABS: Basophils % 0.4 % (0.0-0.8); Eosinophils % 0.7 % (0.00-10.9); Hematocrit 33.2 VOL% (42.0-52.0); Hemoglobin 11.2 GM/DL (14.0-18.0); Immature Granulocytes % 1.1 %; Immature Granulocytes Absolute 0.03 #; Lymphocytes # 0.4 10*3/uL (1.4-4.0); Lymphocytes % 15.5 % (21.2-54.2); Mean Corpuscular HGB Conc 33.7 GM/DL (32-36); Mean Corpuscular Volume 101.8 FL (87-102); Mean Platelet Volume 11.6 FL (9.6-12.0); Monocytes % 6.1 % (1.7-12.7); NRBC # 0.03 10*3/uL; Neutrophils % 76.2 % (38.7-73.9); Platelet Count 53 T/CUMM (130-400); Red Blood Count 3.26 MC/CUMM (3.8-5.5); Red Cell Distribution Width 15.5 % (9.3-17.3); White Blood Count 2.8 T/CUMM (4-12)
[2021-09-28 05:19] LABS: Bilirubin,Total 1.9 MG/DL (0.20-1.00); Calcium 9.7 MG/DL (8.5-10.1); Osmolality,Calculated 279.1 MOS/KG (273-304); Potassium 3.5 MMOL/L (3.5-5.1); Total Protein 7.9 G/DL (6.4-8.2)
[2021-09-28 06:28] LABS: Platelet Estimate Decreased; Tear Drop Cells Few
[2021-09-28] MEDS: DEXT 5% NACL 0.45% KCL 20 MEQ 20 MEQ/1,000 ML BAG IV SCH ×2 (07:12→17:55)
[2021-09-28] MEDS: predniSONE 10 MG TABLET PO SCH (08:29)
[2021-09-28] MEDS: MULTIVITAMIN (BEROCCA) TABLET PO SCH (08:29)
[2021-09-28] MEDS: NICOTINE 21 MG/24 HR PATCH TRANSDERM SCH (08:29)
[2021-09-28] MEDS: FOLIC ACID 1 MG TABLET PO SCH (08:29)
[2021-09-28] MEDS: THIAMINE 200 MG/2 ML VIAL IV SCH ×2 (08:29→21:44)
[2021-09-28] MEDS ORDERED: NICOTINE 21 MG/24 HR PATCH TRANSDERM SCH (09:00)
[2021-09-28] MEDS ORDERED: LORazepam 2 MG/1 ML VIAL IV PRN ×2 (13:17→13:19)
[2021-09-29] MEDS: FAMOTIDINE 20 MG/2 ML VIAL IV SCH ×2 (02:57→14:35)
[2021-09-29 03:33] LABS: Basophils % 0.7 % (0.0-0.8); Eosinophils % 0.3 % (0.00-10.9); Hematocrit 30.1 VOL% (42.0-52.0); Hemoglobin 10.3 GM/DL (14.0-18.0); Immature Granulocytes % 1.3 %; Immature Granulocytes Absolute 0.04 #; Lymphocytes # 0.6 10*3/uL (1.4-4.0); Lymphocytes % 19.6 % (21.2-54.2); Mean Corpuscular HGB Conc 34.2 GM/DL (32-36); Mean Corpuscular Volume 100.3 FL (87-102); Monocytes % 10.8 % (1.7-12.7); Neutrophils % 67.3 % (38.7-73.9); Red Cell Distribution Width 15.5 % (9.3-17.3); White Blood Count 3.1 T/CUMM (4-12)
[2021-09-29 03:43] LABS: Albumin 2.4 G/DL (3.4-5.0); Bilirubin,Total 1.4 MG/DL (0.20-1.00); Calcium 8.9 MG/DL (8.5-10.1); Osmolality,Calculated 270.8 MOS/KG (273-304); Potassium 3.8 MMOL/L (3.5-5.1); Total Protein 6.8 G/DL (6.4-8.2)
[2021-09-29 03:46] LABS: Platelet Count 35 T/CUMM (130-400)
[2021-09-29] MEDS: DEXT 5% NACL 0.45% KCL 20 MEQ 20 MEQ/1,000 ML BAG IV SCH ×2 (03:58→14:35)
[2021-09-29] MEDS: DIAZEPAM 5 MG TABLET PO SCH ×3 (06:08→21:27)
[2021-09-29] MEDS: FOLIC ACID 1 MG TABLET PO SCH (09:33)
[2021-09-29] MEDS: MULTIVITAMIN (BEROCCA) TABLET PO SCH (09:33)
[2021-09-29] MEDS: predniSONE 10 MG TABLET PO SCH (09:33)
[2021-09-29] MEDS: NICOTINE 21 MG/24 HR PATCH TRANSDERM SCH (09:33)
[2021-09-29] MEDS: THIAMINE 200 MG/2 ML VIAL IV SCH ×2 (09:33→21:27)
[2021-09-29] MEDS: METOPROLOL TARTRATE 25 MG TABLET PO SCH (21:27)
[2021-09-30] MEDS: hydrALAZINE 20 MG/1 ML VIAL IV PRN (00:24)
[2021-09-30] MEDS: DEXT 5% NACL 0.45% KCL 20 MEQ 20 MEQ/1,000 ML BAG IV SCH ×3 (01:00→22:35)
[2021-09-30] MEDS: FAMOTIDINE 20 MG/2 ML VIAL IV SCH ×2 (02:47→13:37)
[2021-09-30] MEDS: DIAZEPAM 5 MG TABLET PO SCH ×3 (06:08→21:30)
[2021-09-30 06:30] LABS: Basophils % 0.3 % (0.0-0.8); Eosinophils % 0.6 % (0.00-10.9); Hematocrit 31.3 VOL% (42.0-52.0); Hemoglobin 10.9 GM/DL (14.0-18.0); Immature Granulocytes % 4.4 %; Immature Granulocytes Absolute 0.15 #; Lymphocytes # 0.8 10*3/uL (1.4-4.0); Lymphocytes % 22.7 % (21.2-54.2); Mean Corpuscular HGB Conc 34.8 GM/DL (32-36); Mean Corpuscular Volume 99.4 FL (87-102); Mean Platelet Volume 10.7 FL (9.6-12.0); Monocytes % 16.2 % (1.7-12.7); NRBC # 0.02 10*3/uL; Neutrophils % 55.8 % (38.7-73.9); Platelet Count 77 T/CUMM (130-400); Red Blood Count 3.15 MC/CUMM (3.8-5.5); Red Cell Distribution Width 15.4 % (9.3-17.3); White Blood Count 3.4 T/CUMM (4-12)
[2021-09-30 06:52] LABS: Albumin 2.5 G/DL (3.4-5.0); Bilirubin,Total 1.2 MG/DL (0.20-1.00); Calcium 9.4 MG/DL (8.5-10.1); Potassium 3.4 MMOL/L (3.5-5.1); Total Protein 7.2 G/DL (6.4-8.2)
[2021-09-30 07:00] LABS: Band Neutrophils 2 % (0-10); Lymphocytes 19 % (20-55); Nucleated Red Blood Cells 1 (0-5); Segmented Neutrophils 66 % (50-85); Total Cells Counted 100
[2021-09-30 07:01] LABS: Hypochromia 1+; Target Cells Few
[2021-09-30 07:02] LABS: Microcytosis 1+
[2021-09-30] MEDS: FOLIC ACID 1 MG TABLET PO SCH (09:57)
[2021-09-30] MEDS: METOPROLOL TARTRATE 25 MG TABLET PO SCH ×2 (09:57→20:22)
[2021-09-30] MEDS: predniSONE 10 MG TABLET PO SCH (09:57)
[2021-09-30] MEDS: NICOTINE 21 MG/24 HR PATCH TRANSDERM SCH (09:57)
[2021-09-30] MEDS: POTASSIUM CHLORIDE 20 MEQ TABLET PO PRN ×3 (09:57→14:22)
[2021-09-30] MEDS: THIAMINE 200 MG/2 ML VIAL IV SCH ×2 (09:57→20:22)
[2021-09-30] MEDS: MULTIVITAMIN (BEROCCA) TABLET PO SCH (09:57)
[2021-10-01] MEDS: FAMOTIDINE 20 MG/2 ML VIAL IV SCH (02:49)
[2021-10-01] MEDS: DIAZEPAM 5 MG TABLET PO SCH (05:14)
[2021-10-01] MEDS: ACETAMINOPHEN 325 MG TABLET PO PRN (05:14)
[2021-10-01 06:46] LABS: Basophils % 0.8 % (0.0-0.8); Eosinophils % 0.5 % (0.00-10.9); Hematocrit 30.5 VOL% (42.0-52.0); Hemoglobin 10.9 GM/DL (14.0-18.0); Immature Granulocytes % 3.2 %; Immature Granulocytes Absolute 0.12 #; Lymphocytes % 27.5 % (21.2-54.2); Mean Corpuscular HGB Conc 35.7 GM/DL (32-36); Mean Corpuscular Volume 97.8 FL (87-102); Mean Platelet Volume 11.4 FL (9.6-12.0); Platelet Count 98 T/CUMM (130-400); Red Blood Count 3.12 MC/CUMM (3.8-5.5); White Blood Count 3.7 T/CUMM (4-12)
[2021-10-01 07:07] LABS: Albumin 2.8 G/DL (3.4-5.0); Bilirubin,Total 1.2 MG/DL (0.20-1.00); Calcium 9.3 MG/DL (8.5-10.1); Potassium 3.7 MMOL/L (3.5-5.1); Total Protein 7.3 G/DL (6.4-8.2)
[2021-10-01 07:08] LABS: Lymphocytes 28 % (20-55); Platelet Estimate Decreased; Segmented Neutrophils 59 % (50-85); Total Cells Counted 100
[2021-10-01 07:09] LABS: Hypochromia Slight; Microcytosis Slight
[2021-10-01 08:14] VITALS: BP 130/98
[2021-10-01] MEDS: predniSONE 10 MG TABLET PO SCH (08:30)
[2021-10-01] MEDS: NICOTINE 21 MG/24 HR PATCH TRANSDERM SCH (08:30)
[2021-10-01] MEDS: FOLIC ACID 1 MG TABLET PO SCH (08:30)
[2021-10-01] MEDS: MULTIVITAMIN (BEROCCA) TABLET PO SCH (08:30)
[2021-10-01] MEDS: THIAMINE 200 MG/2 ML VIAL IV SCH (08:30)
[2021-10-01] MEDS: METOPROLOL TARTRATE 25 MG TABLET PO SCH (08:30)
[2021-10-01] MEDS: DEXT 5% NACL 0.45% KCL 20 MEQ 20 MEQ/1,000 ML BAG IV SCH (10:21)
== END 2021-10-01 11:48 | disposition home or self-care (01) | DRG 897 ==
LOC: EDUNIT# → N.ED 10:40 → N.EDINP 12:23 → SUATTDRO 12:23 → N.ICU 16:24 → N.3E 09-30 14:34
PROVIDERS: ADMIT Internal Medicine; ATTEND Internal Medicine